=== PATIENT | female | born 1980 | race Caucasian/White ===

== ENCOUNTER 2017-01-11 17:21 | Observation (INO) | payer SELFPAY ==
[~2017-01-11] VITALS: Ht 157.5 cm; Wt 65.8 kg
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
--- NOTE | 2017-01-11 19:06 | ED CLINICAL REPORT ---
Clinical Report - Physicians/Mid Levels [facility] [address] [place] [address] 01/11/2017 17:23 Patient: AI BUTCHER Time Seen: 18:58 Mar 2016. Arrived- By private vehicle. Historian- patient. HISTORY OF PRESENT ILLNESS Chief Complaint: weak/ epigastric pain off on. 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 The patient has had loss of appetite, fatigue, a sleep problem and weakness. (call from her pcp to come to er due to critical low labs, recent increase in depression, fatigue, tiredness, situational stress. Denies excessive etoh/ nsaid. Denies melana. Denies hematemesis, hemoptysis. Does have heavy menses.). REVIEW OF SYSTEMS No fever, sore throat, cough, nausea or skin rash. No back pain. All systems otherwise negative, except as recorded above. SOCIAL HISTORY Never smoker. No alcohol use or drug use. ADDITIONAL NOTES The nursing notes have been reviewed. PHYSICAL EXAM Vital Signs: 01/11/2017 17:35 BP: 116/44. HR: 73. RR: 16. O2 saturation: 100%. Temp: 99.2 F. Pain level now: 10. Appearance: Alert. ENT: Ears normal. Neck: Normal inspection. No carotid bruit. CVS: Normal heart rate and rhythm. Heart sounds normal. Respiratory: No respiratory distress. Breath sounds normal. No decreased air movement. Abdomen: No visible injury. Soft. No abdominal tenderness. Neuro: Oriented X 3. LABS, X-RAYS, AND EKG EKG: EKG time: (1919). No acute process. No acute ischemia. Normal EKG. Rate: 65. Normal P waves. Normal VENKAT. Normal QRS complex. Normal ST and T waves and QT. The study has been interpreted contemporaneously. The EKG appears to be a good tracing. Chest X-ray: (IMPRESSION: 1. Normal chest. Electronically Final signed by:Ana tAwood MD 01/11/2017 7:42:42 PM). Laboratory Tests: Urine: (HUI: 01/11/2017 18:00) ( MsgRcvd 01/11/2017 18:50) Final results Test Result Flag Units (Reference) URINE NEGATIVE CBC w Diff: (HUI: 01/11/2017 18:05) ( [facility]11[facility] 18:53) Final results Test Result Flag Units (Reference) WHITE BLOOD COUNT 7.4 K/uL (4.5-11.5) RED BLOOD COUNT 3.76 L M/uL (4.00-5.20) HEMOGLOBIN 5.1 *L gm/dL (12.0-16.0) CRITICAL RESULTS CALLEDCalled to LISANDRA LOWERY 01/11/17 183Wer 2 patient identifiers used? YESWas the result read back? YES HEMATOCRIT 18.2 *L % (36.0-46.0) CRITICAL RESULTS [facility]EDCalled to [facility] 01/11/17 1833Wer 2 patient identifiers used? YESWas the result read back? YES MEAN CELL VOLUME 48 L fL (80-100) MEAN CORPUSCULAR HGB 14 L pg (26-34) MEAN CORPUSCULAR HGB CONC 28 L g/dL (31-37) RED CELL DISTRIBUTION WIDTH 22.6 H % (11.6-14.8) PLATELET COUNT 414 H K/uL (150-400) NEUTROPHIL % 58.3 % (50-75) LYMPH % 30.4 % (25-40) MONO % 8.4 % (3-14) EOSINOPHIL % 2.6 % (0-4) BASOPHIL % 0.3 % (0-2) RBC MORPHOLOGY 4+ POLYCHROMASIA~~4+ MICROCYTOSIS~~4+ HYPOCHROMIA~~2+ OVALOCYTES~~1+ TARGET CELLS PT with INR: (HUI: 01/11/2017 18:05) ( [facility] 01/11/2017 18:35) Final results Test Result Flag Units (Reference) INR 1.1 (0.8-1.2) Low Intensity Therapy: INR 1.5-2.0 PT range 18.5-23.1Mod.Intensity Therapy: INR 2.0-3.0 PT range 23.1-31.5High Intensity Therapy: INR 2.5-3.5 PT range 27.4-35.5High Intensity Therapy 2: INR 3.0-4.0 PT range 31.5-39.3 APTT 32 SECONDS (24-34) Urine Drug Screen: (HUI: 01/11/2017 18:00) ( MsgRcvd 01/11/2017 18:24) Final results Test Result Flag Units (Reference) AMPHETAMINE/METHAMPHETAMINE NEGATIVE (NEGATIVE) BARBITURATE NEGATIVE (NEGATIVE) BENZODIAZEPINE NEGATIVE (NEGATIVE) CANNABINOID NEGATIVE (NEGATIVE) COCAINE NEGATIVE (NEGATIVE) ECSTASY NEGATIVE (NEGATIVE) METHADONE NEGATIVE (NEGATIVE) OPIATE NEGATIVE (NEGATIVE) The urine drug screen is a qualitative screening test fordrug overdose and abuse. All screen results should beconsidered as presumptive.Drugs screened for are as follows:BenzodiazepinesCocaineAmphetamines/MetamphetaminesTHC (Tetrahydrocannabinol)OpiatesBarbituratesEcstasyMethadonePositive results are unconfirmed. For confirmation, notifythe lab for the specimen to be sent to the reference lab.All confirmations must be performed by a differentmethodology.The ingestion of natural herbal and plant productscontaining Ephedra/Ephedra metabolites can produce in urineone or more substances capable of cross reacting withamphetamine/methamphetamine immunoassays. These testsprovide a preliminary result only. A more specificalternative chemical method must be used to obtain aconfirmed analytical result. CMP: (HUI: 01/11/2017 18:05) ( MsgRcvd 01/11/2017 18:34) Final results Test Result Flag Units (Reference) GLUCOSE 87 mg/dL (70-110) BUN 14 mg/dL (7-18) CREATININE 0.8 mg/dL (0.6-1.3) Estimated GFR >60 mL/min Estimated GFR- >60 mL/min Note: Persistent reduction over 3 months in eGFR<60 mL/min/1.73 m2 defines CKD. Patients with eGFR values>=60 mL/min/1.73 m2 may also have CKD if evidence ofpersistent proteinuria. Additional information may be foundat www.kidney.org. SODIUM 141 mmol/L (136-145) POTASSIUM 3.4 L mmol/L (3.5-5.1) CHLORIDE 104 mmol/L (98-107) CARBON DIOXIDE 26 mmol/L (21-32) CALCIUM 8.5 mg/dL (8.5-10.1) TOTAL PROTEIN 8.2 g/dL (6.4-8.2) ALBUMIN 4.0 g/dL (3.3-5.0) BILIRUBIN, TOTAL 0.6 mg/dL (0.0-1.0) ALKALINE PHOSPHATASE 79 U/L (46-116) AST (SGOT) 15 U/L (15-37) ALT (SGPT) 16 U/L (12-78) . PROGRESS AND PROCEDURES Course of Care: H 4.7/ HCT 17.8 Discussed case with surgeon, dr. Frank, who reports no essential need for emergent scope. Hemoccult neg, exam chaperoned with VINCENT. Pt case discussed with Dr. Ruelas, who reports DR. Limon will call at change of shift. Dr. Limon called 19:20 agreed on treatment plan, will admit, transfuse 2 units rbc packed. Pt developed chest pain at 19:20, ordered cxr, ekg, trop. 01/11/2017 18:47 BP: 115/66. HR: 89. RR: 15. O2 saturation: 100%. Temp: 98.2 F. Pain level now: 0/10. Patient is stable. Discussed case with health care provider (Braxton). Patient/family counseled. Disposition: Admitted. CLINICAL IMPRESSION Anemia. (Electronically signed by Aliza Hernandez P.A.-C 01/11/2017 20:04)
--- NOTE | 2017-01-11 19:06 | ED CLINICAL REPORT ---
Clinical Report - Physicians/Mid Levels [facility] [address] [place] [address] 01/11/2017 17:23 Patient: AI BUTCHER Time Seen: 18:58 Mar 2016. Arrived- By private vehicle. Historian- patient. HISTORY OF PRESENT ILLNESS Chief Complaint: weak/ epigastric pain off on. 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 The patient has had loss of appetite, fatigue, a sleep problem and weakness. (call from her pcp to come to er due to critical low labs, recent increase in depression, fatigue, tiredness, situational stress. Denies excessive etoh/ nsaid. Denies melana. Denies hematemesis, hemoptysis. Does have heavy menses.). REVIEW OF SYSTEMS No fever, sore throat, cough, nausea or skin rash. No back pain. All systems otherwise negative, except as recorded above. SOCIAL HISTORY Never smoker. No alcohol use or drug use. ADDITIONAL NOTES The nursing notes have been reviewed. PHYSICAL EXAM Vital Signs: 01/11/2017 17:35 BP: 116/44. HR: 73. RR: 16. O2 saturation: 100%. Temp: 99.2 F. Pain level now: 10. Appearance: Alert. ENT: Ears normal. Neck: Normal inspection. No carotid bruit. CVS: Normal heart rate and rhythm. Heart sounds normal. Respiratory: No respiratory distress. Breath sounds normal. No decreased air movement. Abdomen: No visible injury. Soft. No abdominal tenderness. Neuro: Oriented X 3. LABS, X-RAYS, AND EKG EKG: EKG time: (1919). No acute process. No acute ischemia. Normal EKG. Rate: 65. Normal P waves. Normal VENKAT. Normal QRS complex. Normal ST and T waves and QT. The study has been interpreted contemporaneously. The EKG appears to be a good tracing. Chest X-ray: (IMPRESSION: 1. Normal chest. Electronically Final signed by:Ana Atwood MD 01/11/2017 7:42:42 PM). Laboratory Tests: Urine: (HUI: 01/11/2017 18:00) ( MsgRcvd 01/11/2017 18:50) Final results Test Result Flag Units (Reference) URINE NEGATIVE CBC w Diff: (HUI: 01/11/2017 18:05) ( [facility]11[facility]2017 18:53) Final results Test Result Flag Units (Reference) WHITE BLOOD COUNT 7.4 K/uL (4.5-11.5) RED BLOOD COUNT 3.76 L M/uL (4.00-5.20) HEMOGLOBIN 5.1 *L gm/dL (12.0-16.0) CRITICAL RESULTS CALLEDCalled to LISANDRA LOWERY 01/11/17 183Wer 2 patient identifiers used? YESWas the result read back? YES HEMATOCRIT 18.2 *L % (36.0-46.0) CRITICAL RESULTS [facility]EDCalled to [facility] 01/11/17 1833Wer 2 patient identifiers used? YESWas the result read back? YES MEAN CELL VOLUME 48 L fL (80-100) MEAN CORPUSCULAR HGB 14 L pg (26-34) MEAN CORPUSCULAR HGB CONC 28 L g/dL (31-37) RED CELL DISTRIBUTION WIDTH 22.6 H % (11.6-14.8) PLATELET COUNT 414 H K/uL (150-400) NEUTROPHIL % 58.3 % (50-75) LYMPH % 30.4 % (25-40) MONO % 8.4 % (3-14) EOSINOPHIL % 2.6 % (0-4) BASOPHIL % 0.3 % (0-2) RBC MORPHOLOGY 4+ POLYCHROMASIA~~4+ MICROCYTOSIS~~4+ HYPOCHROMIA~~2+ OVALOCYTES~~1+ TARGET CELLS PT with INR: (HUI: 01/11/2017 18:05) ( [facility] 01/11/2017 18:35) Final results Test Result Flag Units (Reference) INR 1.1 (0.8-1.2) Low Intensity Therapy: INR 1.5-2.0 PT range 18.5-23.1Mod.Intensity Therapy: INR 2.0-3.0 PT range 23.1-31.5High Intensity Therapy: INR 2.5-3.5 PT range 27.4-35.5High Intensity Therapy 2: INR 3.0-4.0 PT range 31.5-39.3 APTT 32 SECONDS (24-34) Urine Drug Screen: (HUI: 01/11/2017 18:00) ( MsgRcvd 01/11/2017 18:24) Final results Test Result Flag Units (Reference) AMPHETAMINE/METHAMPHETAMINE NEGATIVE (NEGATIVE) BARBITURATE NEGATIVE (NEGATIVE) BENZODIAZEPINE NEGATIVE (NEGATIVE) CANNABINOID NEGATIVE (NEGATIVE) COCAINE NEGATIVE (NEGATIVE) ECSTASY NEGATIVE (NEGATIVE) METHADONE NEGATIVE (NEGATIVE) OPIATE NEGATIVE (NEGATIVE) The urine drug screen is a qualitative screening test fordrug overdose and abuse. All screen results should beconsidered as presumptive.Drugs screened for are as follows:BenzodiazepinesCocaineAmphetamines/MetamphetaminesTHC (Tetrahydrocannabinol)OpiatesBarbituratesEcstasyMethadonePositive results are unconfirmed. For confirmation, notifythe lab for the specimen to be sent to the reference lab.All confirmations must be performed by a differentmethodology.The ingestion of natural herbal and plant productscontaining Ephedra/Ephedra metabolites can produce in urineone or more substances capable of cross reacting withamphetamine/methamphetamine immunoassays. These testsprovide a preliminary result only. A more specificalternative chemical method must be used to obtain aconfirmed analytical result. CMP: (HUI: 01/11/2017 18:05) ( MsgRcvd 01/11/2017 18:34) Final results Test Result Flag Units (Reference) GLUCOSE 87 mg/dL (70-110) BUN 14 mg/dL (7-18) CREATININE 0.8 mg/dL (0.6-1.3) Estimated GFR >60 mL/min Estimated GFR- >60 mL/min Note: Persistent reduction over 3 months in eGFR<60 mL/min/1.73 m2 defines CKD. Patients with eGFR values>=60 mL/min/1.73 m2 may also have CKD if evidence ofpersistent proteinuria. Additional information may be foundat www.kidney.org. SODIUM 141 mmol/L (136-145) POTASSIUM 3.4 L mmol/L (3.5-5.1) CHLORIDE 104 mmol/L (98-107) CARBON DIOXIDE 26 mmol/L (21-32) CALCIUM 8.5 mg/dL (8.5-10.1) TOTAL PROTEIN 8.2 g/dL (6.4-8.2) ALBUMIN 4.0 g/dL (3.3-5.0) BILIRUBIN, TOTAL 0.6 mg/dL (0.0-1.0) ALKALINE PHOSPHATASE 79 U/L (46-116) AST (SGOT) 15 U/L (15-37) ALT (SGPT) 16 U/L (12-78) . PROGRESS AND PROCEDURES Course of Care: H 4.7/ HCT 17.8 Discussed case with surgeon, dr. Frank, who reports no essential need for emergent scope. Hemoccult neg, exam chaperoned with VINCENT. Pt case discussed with Dr. Ruelas, who reports DR. Limon will call at change of shift. Dr. Limon called 19:20 agreed on treatment plan, will admit, transfuse 2 units rbc packed. Pt developed chest pain at 19:20, ordered cxr, ekg, trop. 01/11/2017 18:47 BP: 115/66. HR: 89. RR: 15. O2 saturation: 100%. Temp: 98.2 F. Pain level now: 0/10. Patient is stable. Discussed case with health care provider (Braxton). Patient/family counseled. Disposition: Admitted. CLINICAL IMPRESSION Anemia. (Electronically signed by Aliza Hernandez P.A.-C 01/11/2017 20:04)
--- NOTE | 2017-01-11 19:06 | ED ORDER SUMMARY ---
..... Patient: AI BUTCHER OrderSheet [facility] VisitID: [id number] [address] [place] [address] 36y, F Registration Date/Time: 01/11/2017 ORDER SHEET Weight: 62.5 kg (stated) Allergies: Dayquil GENERAL ORDERS: CBC w Diff Urgent (17:46 01/11/2017 EKoroleva P.A.-C) (Ack 17:56 RKaruga) (18:11 EHassan R.N.) PT with INR Urgent (17:46 01/11/2017 EKoroleva P.A.-C) (Ack 17:56 RKaruga) (18:11 EHassan R.N.) PTT Urgent (17:46 01/11/2017 EKoroleva P.A.-C) (Ack 17:56 RKaruga) (18:11 EHassan R.N.) BMP Urgent (17:46 01/11/2017 EKoroleva P.A.-C) (Cancelled: Other17:46 EKoroleva P.A.-C) CMP Urgent (17:46 01/11/2017 EKoroleva P.A.-C) (Ack 17:56 RKaruga) (18:11 EHassan R.N.) Urine Drug Screen Urgent (17:46 01/11/2017 EKoroleva P.A.-C) (Ack 17:56 RKaruga) (18:11 EHassan R.N.) Type & Screen Urgent (17:53 01/11/2017 EKoroleva P.A.-C) (Ack 17:56 RKaruga) (18:11 EHassan R.N.) Transfuse PRBCs (2 units) (18:33 01/11/2017 EKoroleva P.A.-C) (Ack 18:51 RKaruga) (20:17 EHassan R.N.) - (2 units RBC packed) (18:36 01/11/2017 EKoroleva P.A.-C) (Ack 18:51 RKaruga) (20:17 EHassan R.N.) Urine Urgent (18:38 01/11/2017 EKoroleva P.A.-C) (Ack 18:40 RKaruga) (18:47 EHassan R.N.) Chest 2V Urgent (19:11 01/11/2017 EKoroleva P.A.-C) (Ack 19:14 AMcQuoid ER Tech1) (19:36 MCampbell) [employer] (Continuous) (19:11 01/11/2017 EKoroleva P.A.-C) (19:15 EHassan R.N.) EKG - ER Stat (19:11 01/11/2017 EKoroleva P.A.-C) (Ack 19:14 AMcQuoid ER Tech1) (19:15 EHassan R.N.) - (retic count) (19:32 01/11/2017 EKoroleva P.A.-C) (Ack 19:53 AMcQuoid ER Tech1) (20:03 AMcQuoid ER Tech1) -- (b12) (19:32 01/11/2017 EKoroleva P.A.-C) (Ack 19:53 AMcQuoid ER Tech1) (20:03 AMcQuoid ER Tech1) --- (iron deficiency labs including: iron binding capacity (transferrin), transferrin saturation, and ferritin) (19:33 01/11/2017 EKoroleva P.A.-C) (Ack 19:53 AMcQuoid ER Tech1) (20:03 AMcQuoid ER Tech1) Troponin-I Urgent (19:34 01/11/2017 EKoroleva P.A.-C) (Ack 19:45 AMcQuoid ER Tech1) (20:03 AMcQuoid ER Tech1) - (folate) (19:55 01/11/2017 EKoroleva P.A.-C) (20:03 AMcQuoid ER Tech1) MEDICATION ORDERS: IV FLUIDS: IV Saline Lock (17:46 01/11/2017 EKoroleva P.A.-C) (18:12 EHassan R.N.) ORDER SHEET NOTES: [Electronically signed by Aliza Hernandez PDuaneADuane-C (20:04 01/11/2017)] [Electronically signed by Kaylee Coreas R.N. (20:54 01/11/2017)] [Electronically locked/signed by Kaylee Coreas R.N. (20:54 01/11/2017)]
--- NOTE | 2017-01-11 19:06 | ED ORDER SUMMARY ---
..... Patient: AI BUTCHER OrderSheet Formerly [facility] VisitID: [id number] [address] [place] [address] 36y, F Registration Date/Time: 01/11/2017 ORDER SHEET Weight: 62.5 kg (stated) Allergies: Dayquil GENERAL ORDERS: CBC w Diff Urgent (17:46 01/11/2017 EKoroleva P.A.-C) (Ack 17:56 RKaruga) (18:11 EHassan R.N.) PT with INR Urgent (17:46 01/11/2017 EKoroleva P.A.-C) (Ack 17:56 RKaruga) (18:11 EHassan R.N.) PTT Urgent (17:46 01/11/2017 EKoroleva P.A.-C) (Ack 17:56 RKaruga) (18:11 EHassan R.N.) BMP Urgent (17:46 01/11/2017 EKoroleva P.A.-C) (Cancelled: Other17:46 EKoroleva P.A.-C) CMP Urgent (17:46 01/11/2017 EKoroleva P.A.-C) (Ack 17:56 RKaruga) (18:11 EHassan R.N.) Urine Drug Screen Urgent (17:46 01/11/2017 EKoroleva P.A.-C) (Ack 17:56 RKaruga) (18:11 EHassan R.N.) Type & Screen Urgent (17:53 01/11/2017 EKoroleva P.A.-C) (Ack 17:56 RKaruga) (18:11 EHassan R.N.) Transfuse PRBCs (2 units) (18:33 01/11/2017 EKoroleva P.A.-C) (Ack 18:51 RKaruga) (20:17 EHassan R.N.) - (2 units RBC packed) (18:36 01/11/2017 EKoroleva P.A.-C) (Ack 18:51 RKaruga) (20:17 EHassan R.N.) Urine Urgent (18:38 01/11/2017 EKoroleva P.A.-C) (Ack 18:40 RKaruga) (18:47 EHassan R.N.) Chest 2V Urgent (19:11 01/11/2017 EKoroleva P.A.-C) (Ack 19:14 AMcQuoid ER Tech1) (19:36 MCampbell) Coal Chute Worker (Continuous) (19:11 01/11/2017 EKoroleva P.A.-C) (19:15 EHassan R.N.) EKG - ER Stat (19:11 01/11/2017 EKoroleva P.A.-C) (Ack 19:14 AMcQuoid ER Tech1) (19:15 EHassan R.N.) - (retic count) (19:32 01/11/2017 EKoroleva P.A.-C) (Ack 19:53 AMcQuoid ER Tech1) (20:03 AMcQuoid ER Tech1) -- (b12) (19:32 01/11/2017 EKoroleva P.A.-C) (Ack 19:53 AMcQuoid ER Tech1) (20:03 AMcQuoid ER Tech1) --- (iron deficiency labs including: iron binding capacity (transferrin), transferrin saturation, and ferritin) (19:33 01/11/2017 EKoroleva P.A.-C) (Ack 19:53 AMcQuoid ER Tech1) (20:03 AMcQuoid ER Tech1) Troponin-I Urgent (19:34 01/11/2017 EKoroleva P.A.-C) (Ack 19:45 AMcQuoid ER Tech1) (20:03 AMcQuoid ER Tech1) - (folate) (19:55 01/11/2017 EKoroleva P.A.-C) (20:03 AMcQuoid ER Tech1) MEDICATION ORDERS: IV FLUIDS: IV Saline Lock (17:46 01/11/2017 EKoroleva P.A.-C) (18:12 EHassan R.N.) ORDER SHEET NOTES: [Electronically signed by Aliza Hernandez PDuaneADuane-C (20:04 01/11/2017)] [Electronically signed by Kaylee Coreas R.N. (20:54 01/11/2017)] [Electronically locked/signed by Kaylee Coreas R.N. (20:54 01/11/2017)]
--- NOTE | 2017-01-11 19:46 | DIAGNOSTIC IMAGING REPORT ---
PROCEDURE: XR CHEST 2 VIEW INDICATION: CHEST PAIN TECHNIQUE: Two views. COMPARISON: None. FINDINGS: The cardiomediastinal contour and central vasculature are within normal limits. The lungs are clear without focal consolidation, pleural effusion, or pneumothorax. The visualized osseous structures are intact. IMPRESSION: 1. Normal chest.
[2017-01-11 20:44] VITALS: BP 113/60
--- NOTE | 2017-01-11 20:54 | ED MAR SUMMARY ---
..... Medication Administration Record [facility] [address] [place], [place] [id number] Patient: BENSON VALENTINA AI Visit ID: [id number] 36y, F Weight: 62.5 kg Height/Length: 62 in BMI: 25.2 ALLERGIES: Dayquil
--- NOTE | 2017-01-11 20:54 | ED DISCHARGE INSTRUCTIONS ---
Patient: KNOWLES AI MONTGOMERY General Instructions [facility] VisitID: [id number] [address] [place] [address] 36y, F Registration Date/Time: 01/11/2017 Anemia. (Electronically signed by Aliza Hernandez P.A.-C 01/11/2017 20:04)
--- NOTE | 2017-01-11 20:54 | ED MED RECONCILIATION SUMMARY ---
Patient: BENSON AI MONTGOMERY Medication Reconciliation Report [facility] VisitID: [id number] [address] [place] [address] 36y, F Registration Date/Time: 01/11/2017 Weight: 62.5 kg Height/Length: 62 in. BMI: 25.2 ALLERGIES: Dayquil The patient's Home Medications are listed below: THE FOLLOWING MEDICATIONS NEED TO BE RECONCILED: HydrOXYzine HCl Oral 10 mg, at bedtime Omeprazole Oral 40 mg, daily Sertraline HCl Oral 50 mg, at bedtime The source(s) of the original Home Medication information: Not obtained. The following Medications were given to the patient in the Emergency Department: None. The following Medications were prescribed to the patient: None.
--- NOTE | 2017-01-11 20:54 | ED MAR SUMMARY ---
..... Medication Administration Record [facility] [address] [place], [place] [id number] Patient: BENSON VALENTINA AI Visit ID: [id number] 36y, F Weight: 62.5 kg Height/Length: 62 in BMI: 25.2 ALLERGIES: Dayquil
--- NOTE | 2017-01-11 20:54 | ED MED RECONCILIATION SUMMARY ---
Patient: BENSON AI MONTGOMERY Medication Reconciliation Report [facility] VisitID: [id number] [address] [place] [address] 36y, F Registration Date/Time: 01/11/2017 Weight: 62.5 kg Height/Length: 62 in. BMI: 25.2 ALLERGIES: Dayquil The patient's Home Medications are listed below: THE FOLLOWING MEDICATIONS NEED TO BE RECONCILED: HydrOXYzine HCl Oral 10 mg, at bedtime Omeprazole Oral 40 mg, daily Sertraline HCl Oral 50 mg, at bedtime The source(s) of the original Home Medication information: Not obtained. The following Medications were given to the patient in the Emergency Department: None. The following Medications were prescribed to the patient: None.
--- NOTE | 2017-01-11 20:54 | ED DISCHARGE INSTRUCTIONS ---
Patient: KNOWLES AI MONTGOMERY General Instructions [facility] VisitID: [id number] [address] [place] [address] 36y, F Registration Date/Time: 01/11/2017 Anemia. (Electronically signed by Aliza Hernandez P.A.-C 01/11/2017 20:04)
[2017-01-11] MEDS ORDERED: HYDROXYZINE HCL25 MG PO (21:00)
--- NOTE | 2017-01-11 21:00 | Progress Note ---
Subjective General Admission History and Physical Examination Patient Name: Tasha Che Admission Date: January 11, 2017 Primary Care Provider: Genny SMITH Attending Physician: Kash Limon M.D. Admitting Physician: Kash Limon M.D. Code Status: FULL CODE Room: 212 SUBJECTIVE Historian: Patient Reliability: Good Chief Complaint: Anemia History of Present Illness: The patient is a 36-year-old female with a significant past medical history of anxiety, depression who presented to [facility] emergency department as a referral by her PCP secondary to findings of anemia on outpatient laboratory testing. No other significant complaints at this time. [facility] ER evaluation was consistent with severe anemia with H&H of 5.1/18.2, MCV 48. Secondary to the above, the patient was admitted by Kash Limon M.D. for further evaluation and treatment. The patient was recently seen by her PCP at [facility] in [place]. During that visit the patient complained of depression, anxiety, low energy, and dyspepsia. The patient also complained of experienced increasing shortness of breath with exertion. She was treated with Zoloft 50 mg by mouth daily and Prilosec 40 mg by mouth daily. Laboratory evaluation showed severe anemia. Secondary to the above, her PCP referred her to [facility] emergency department for further evaluation and treatment with consideration of transfusion. PAST MEDICAL HISTORY Illnesses: 1. Depression/anxiety 2. Dyspepsia Allergies: 1. DayQuil Medications: 1. Ibuprofen 200 mg by mouth when necessary headache 2. Hydroxyzine 10 mg by mouth daily at bedtime when necessary anxiety 3. Prilosec 40 mg by mouth daily 4. Zoloft 50 mg by mouth daily at bedtime Surgery: 1. 4-2001, 2003, 2007, 2009 Injuries: 1. No significant Hospitalizations: 1. For above surgery FAMILY HISTORY Parents: 1. Father, unknown, 2. Mother, living, 55, breast cancer Siblings: 1. None Children: 1. 4 children, good health Other significant family history: None SOCIAL HISTORY 1. Marital Status: Single 2. Yazidi: Spiritism-Cheondoism 3. Education: High school 4. Employment History: [employer] 5. Occupational health exposures: None HABITS 1. Tobacco: None 2. Drugs: None 3. Alcohol: One ounces per month 4. Caffeine: 2 cups per day-coffee HEALTH SUPERVISION Item/Test 1. Vision screen: 2011 2. Cholesterol Profile: 2016 3. PSA: NA 4. AYDIN: NA 5. FOBT: NA 6. Blood Glucose: 2016 7. Colonoscopy: NA 8. History and physical exam: 2016 9. Audiogram: NA 10. Mammogram: NA 11. Pap/pelvic exam: 2014 IMMUNIZATIONS: 1. Pneumococcal: NA 2. Influenza: 2014 3. Tetanus: 2014 ADVANCED DIRECTIVES: 1. Living well: No 2. POLST: No 3. CODE STATUS: FULL CODE 4. Durable Power [employer] Health care: No 5. Donor card: No REVIEW OF SYSTEMS Remarkable for those things stated in the history of present illness and past medical history. Seventeen point review of system completed with the following notable findings: Eyes: Decreased visual acuity requiring corrective lenses Gastrointestinal: Loss of appetite, dyspepsia Psychological: Depression, difficulty sleeping, anxiety, loss of interest in enjoyable events Genital: Irregular heavy periods Physical Exam Vital Signs / I&Os Vital Signs Date Time Temp Pulse Resp B/P Pulse O2 O2 Flow FiO2 Ox Delivery Rate 01/12 2044 97.5 65 20 113/60 100 Room Air General Appearance Alert, Oriented X3, Cooperative, No acute distress HEENT Atraumatic, PERRLA, EOMI, Moist mucous membranes, Coyle mucous membranes Lungs Clear to auscultation, Normal air movement Neck Supple, No JVD, No masses Cardiovascular Regular rate and rhythm, Normal S1 and S2, grade 1-2/6 systolic murmur. No rubs or gallops. Abdomen Normal bowel sounds, Soft, No tenderness, No guarding Extremities No cyanosis, No clubbing, No edema Neurological Cranial nerves intact, Strength 5/5 x4 ext's, No lateralizing signs Psych/Mental Status Mental status normal, Mood normal LAB Results Laboratory Tests 01/11 1816 Chemistry Iron Pending TIBC Pending Iron Saturation Pending Transferrin Pending Ferritin Pending Troponin (0.00 - 1.5 ng/mL) <0.05 Vitamin B12 Pending Folate Pending Hematology Reticulocyte % (Auto) (0.5 - 1.5 %) 2.9 Reticulocyte # (0.02 - 0.08 M/uL) 0.1068 01/11 01/11 1805 1800 Chemistry Plasma Sodium (136 - 145 mmol/L) 141 Plasma Potassium (3.5 - 5.1 mmol/L) 3.4 Plasma Chloride (98 - 107 mmol/L) 104 CO2 (Enzymatic) (21 - 32 mmol/L) 26 BUN (7 - 18 mg/dL) 14 Creatinine (0.6 - 1.3 mg/dL) 0.8 Est GFR ( Amer) (mL/min) >60 Est GFR (Non-Af Amer) (mL/min) >60 Glucose (70 - 110 mg/dL) 87 Plasma Calcium (8.5 - 10.1 mg/dL) 8.5 Total Bilirubin (0.0 - 1.0 mg/dL) 0.6 AST (15 - 37 U/L) 15 ALT (12 - 78 U/L) 16 Alkaline Phosphatase (46 - 116 U/L) 79 Total Protein (6.4 - 8.2 g/dL) 8.2 Albumin (3.3 - 5.0 g/dL) 4.0 Coagulation INR (0.8 - 1.2) 1.1 APTT (24 - 34 SECONDS) 32 Hematology WBC (4.5 - 11.5 K/uL) 7.4 RBC (4.00 - 5.20 M/uL) 3.76 Hgb (12.0 - 16.0 gm/dL) 5.1 Hct (36.0 - 46.0 %) 18.2 MCV (80 - 100 fL) 48 MCH (26 - 34 pg) 14 RDW (11.6 - 14.8 %) 22.6 Neut % (Auto) (50 - 75 %) 58.3 Lymph % (Auto) (25 - 40 %) 30.4 Pine % (Auto) (3 - 14 %) 8.4 Eos % (Auto) (0 - 4 %) 2.6 Baso % (Auto) (0 - 2 %) 0.3 Plt Count, EDTA (150 - 400 K/uL) 414 RBC Morphology (3944 A) 1+ TARGET CELLS PUBS MCHC (31 - 37 g/dL) 28 Toxicology Urine Opiates Screen (NEGATIVE) NEGATIVE Urine Methadone Screen (NEGATIVE) NEGATIVE Ur Barbiturates Screen (NEGATIVE) NEGATIVE U Amphetamin/Meth Scrn (NEGATIVE) NEGATIVE MDMA (Ecstasy) Screen (NEGATIVE) NEGATIVE U Benzodiazepines Scrn (NEGATIVE) NEGATIVE Urine Cocaine Screen (NEGATIVE) NEGATIVE U Cannabinoids Screen (NEGATIVE) NEGATIVE Urines Urine Test NEGATIVE Imaging None Assessment and Plan Problem List 1. Anemia Status Chronic Onset Date Unknown Plan -Patient presents with severe microcytic anemia -Patient denies history of GI bleeding. Gives history of menorrhagia, dyspepsia -H&H 5.1/18.2. MCV 48 -Iron studies consistent with iron deficiency anemia -B12, folate levels within normal limits -Type and cross for 2 units of packed RBCs-transfuse tonight -Probable discharge in a.m. with outpatient follow-up with PCP. -Stool Hemoccult 3 2. Depression Status Acute Onset Date Unknown Plan -Patient with history of depression -Recently started on Zoloft -Continue Zoloft 50 mg by mouth daily -Monitor 3. Anxiety Status Acute Onset Date Unknown Plan -Patient with history of anxiety -Ativan 0.5-1 mg by mouth every 6 hours when necessary anxiety -Monitor 4. Hypokalemia Status Acute Onset Date Unknown Plan -Patient presents with findings of hypokalemia-mild -Potassium 3.4 -Potassium 20 mEq by mouth every morning, IV fluids with KCl -Recheck in a.m. Current status: Fair, stable Anticipated discharge date: Anticipated discharge in a.m. Anticipated discharge placement: Home Patient care time: Time spent in chart review, patient interview, physical exam, CPOE, and care documentation: 60 minutes Visit to patient today: 1 Complexity of care: Moderate E&M Codes Admission: Obsv-Comp/High/[id number]
--- NOTE | 2017-01-11 21:00 | Progress Note ---
Subjective General Admission History and Physical Examination Patient Name: Tasha Che Admission Date: January 11, 2017 Primary Care Provider: Genny SMITH Attending Physician: Kash Limon M.D. Admitting Physician: Kash Limon M.D. Code Status: FULL CODE Room: 212 SUBJECTIVE Historian: Patient Reliability: Good Chief Complaint: Anemia History of Present Illness: The patient is a 36-year-old female with a significant past medical history of anxiety, depression who presented to [facility] emergency department as a referral by her PCP secondary to findings of anemia on outpatient laboratory testing. No other significant complaints at this time. [facility] ER evaluation was consistent with severe anemia with H&H of 5.1/18.2, MCV 48. Secondary to the above, the patient was admitted by Kash Limon M.D. for further evaluation and treatment. The patient was recently seen by her PCP at [facility] in [place]. During that visit the patient complained of depression, anxiety, low energy, and dyspepsia. The patient also complained of experienced increasing shortness of breath with exertion. She was treated with Zoloft 50 mg by mouth daily and Prilosec 40 mg by mouth daily. Laboratory evaluation showed severe anemia. Secondary to the above, her PCP referred her to [facility] emergency department for further evaluation and treatment with consideration of transfusion. PAST MEDICAL HISTORY Illnesses: 1. Depression/anxiety 2. Dyspepsia Allergies: 1. DayQuil Medications: 1. Ibuprofen 200 mg by mouth when necessary headache 2. Hydroxyzine 10 mg by mouth daily at bedtime when necessary anxiety 3. Prilosec 40 mg by mouth daily 4. Zoloft 50 mg by mouth daily at bedtime Surgery: 1. 4-2001, 2003, 2007, 2009 Injuries: 1. No significant Hospitalizations: 1. For above surgery FAMILY HISTORY Parents: 1. Father, unknown, 2. Mother, living, 55, breast cancer Siblings: 1. None Children: 1. 4 children, good health Other significant family history: None SOCIAL HISTORY 1. Marital Status: Single 2. Pentecostalism: Scientology-Uatsdin 3. Education: High school 4. Employment History: [employer] 5. Occupational health exposures: None HABITS 1. Tobacco: None 2. Drugs: None 3. Alcohol: One ounces per month 4. Caffeine: 2 cups per day-coffee HEALTH SUPERVISION Item/Test 1. Vision screen: 2011 2. Cholesterol Profile: 2016 3. PSA: NA 4. AYDIN: NA 5. FOBT: NA 6. Blood Glucose: 2016 7. Colonoscopy: NA 8. History and physical exam: 2016 9. Audiogram: NA 10. Mammogram: NA 11. Pap/pelvic exam: 2014 IMMUNIZATIONS: 1. Pneumococcal: NA 2. Influenza: 2014 3. Tetanus: 2014 ADVANCED DIRECTIVES: 1. Living well: No 2. POLST: No 3. CODE STATUS: FULL CODE 4. 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 Donor card: No REVIEW OF SYSTEMS Remarkable for those things stated in the history of present illness and past medical history. Seventeen point review of system completed with the following notable findings: Eyes: Decreased visual acuity requiring corrective lenses Gastrointestinal: Loss of appetite, dyspepsia Psychological: Depression, difficulty sleeping, anxiety, loss of interest in enjoyable events Genital: Irregular heavy periods Physical Exam Vital Signs / I&Os Vital Signs Date Time Temp Pulse Resp B/P Pulse O2 O2 Flow FiO2 Ox Delivery Rate 01/12 2044 97.5 65 20 113/60 100 Room Air General Appearance Alert, Oriented X3, Cooperative, No acute distress HEENT Atraumatic, PERRLA, EOMI, Moist mucous membranes, Coyle mucous membranes Lungs Clear to auscultation, Normal air movement Neck Supple, No JVD, No masses Cardiovascular Regular rate and rhythm, Normal S1 and S2, grade 1-2/6 systolic murmur. No rubs or gallops. Abdomen Normal bowel sounds, Soft, No tenderness, No guarding Extremities No cyanosis, No clubbing, No edema Neurological Cranial nerves intact, Strength 5/5 x4 ext's, No lateralizing signs Psych/Mental Status Mental status normal, Mood normal LAB Results Laboratory Tests 01/11 1816 Chemistry Iron Pending TIBC Pending Iron Saturation Pending Transferrin Pending Ferritin Pending Troponin (0.00 - 1.5 ng/mL) <0.05 Vitamin B12 Pending Folate Pending Hematology Reticulocyte % (Auto) (0.5 - 1.5 %) 2.9 Reticulocyte # (0.02 - 0.08 M/uL) 0.1068 01/11 01/11 1805 1800 Chemistry Plasma Sodium (136 - 145 mmol/L) 141 Plasma Potassium (3.5 - 5.1 mmol/L) 3.4 Plasma Chloride (98 - 107 mmol/L) 104 CO2 (Enzymatic) (21 - 32 mmol/L) 26 BUN (7 - 18 mg/dL) 14 Creatinine (0.6 - 1.3 mg/dL) 0.8 Est GFR ( Amer) (mL/min) >60 Est GFR (Non-Af Amer) (mL/min) >60 Glucose (70 - 110 mg/dL) 87 Plasma Calcium (8.5 - 10.1 mg/dL) 8.5 Total Bilirubin (0.0 - 1.0 mg/dL) 0.6 AST (15 - 37 U/L) 15 ALT (12 - 78 U/L) 16 Alkaline Phosphatase (46 - 116 U/L) 79 Total Protein (6.4 - 8.2 g/dL) 8.2 Albumin (3.3 - 5.0 g/dL) 4.0 Coagulation INR (0.8 - 1.2) 1.1 APTT (24 - 34 SECONDS) 32 Hematology WBC (4.5 - 11.5 K/uL) 7.4 RBC (4.00 - 5.20 M/uL) 3.76 Hgb (12.0 - 16.0 gm/dL) 5.1 Hct (36.0 - 46.0 %) 18.2 MCV (80 - 100 fL) 48 MCH (26 - 34 pg) 14 RDW (11.6 - 14.8 %) 22.6 Neut % (Auto) (50 - 75 %) 58.3 Lymph % (Auto) (25 - 40 %) 30.4 [place] % (Auto) (3 - 14 %) 8.4 Eos % (Auto) (0 - 4 %) 2.6 Baso % (Auto) (0 - 2 %) 0.3 Plt Count, EDTA (150 - 400 K/uL) 414 RBC Morphology (3944 A) 1+ TARGET CELLS PUBS MCHC (31 - 37 g/dL) 28 Toxicology Urine Opiates Screen (NEGATIVE) NEGATIVE Urine Methadone Screen (NEGATIVE) NEGATIVE Ur Barbiturates Screen (NEGATIVE) NEGATIVE U Amphetamin/Meth Scrn (NEGATIVE) NEGATIVE MDMA (Ecstasy) Screen (NEGATIVE) NEGATIVE U Benzodiazepines Scrn (NEGATIVE) NEGATIVE Urine Cocaine Screen (NEGATIVE) NEGATIVE U Cannabinoids Screen (NEGATIVE) NEGATIVE Urines Urine Test NEGATIVE Imaging None Assessment and Plan Problem List 1. Anemia Status Chronic Onset Date Unknown Plan -Patient presents with severe microcytic anemia -Patient denies history of GI bleeding. Gives history of menorrhagia, dyspepsia -H&H 5.1/18.2. MCV 48 -Iron studies consistent with iron deficiency anemia -B12, folate levels within normal limits -Type and cross for 2 units of packed RBCs-transfuse tonight -Probable discharge in a.m. with outpatient follow-up with PCP. -Stool Hemoccult 3 2. Depression Status Acute Onset Date Unknown Plan -Patient with history of depression -Recently started on Zoloft -Continue Zoloft 50 mg by mouth daily -Monitor 3. Anxiety Status Acute Onset Date Unknown Plan -Patient with history of anxiety -Ativan 0.5-1 mg by mouth every 6 hours when necessary anxiety -Monitor 4. Hypokalemia Status Acute Onset Date Unknown Plan -Patient presents with findings of hypokalemia-mild -Potassium 3.4 -Potassium 20 mEq by mouth every morning, IV fluids with KCl -Recheck in a.m. Current status: Fair, stable Anticipated discharge date: Anticipated discharge in a.m. Anticipated discharge placement: Home Patient care time: Time spent in chart review, patient interview, physical exam, CPOE, and care documentation: 60 minutes Visit to patient today: 1 Complexity of care: Moderate E&M Codes Admission: Obsv-Comp/High/[id number]
[2017-01-11] MEDS ORDERED: SERTRALINE HCL50 MG PO (21:01)
[2017-01-11] MEDS ORDERED: OMEPRAZOLE20 M1 PO (21:01)
[2017-01-11 21:39] VITALS: BP 112/60
[2017-01-11 21:54] VITALS: BP 96/75
[2017-01-11 22:05] VITALS: BP 107/50
[2017-01-11 22:20] VITALS: BP 109/60
[2017-01-11 23:04] VITALS: BP 107/56
[2017-01-12] VITALS (9 sets, daily range): BP systolic 87–114; BP diastolic 36–69
--- NOTE | 2017-01-12 12:16 | DIAGNOSTIC IMAGING REPORT ---
PROCEDURE: US COMPLETE PELVIC W/TRANSVAG INDICATION: menorrhagia - ? fibroid vs. other TECHNIQUE: Transabdominal and endovaginal sheldon scale and color Doppler sonographic images of the female pelvis were obtained. COMPARISON: None. FINDINGS: TRANSABDOMINAL SCANS: Retroverted uterus. TRANSVAGINAL SCANS: Uterus measures 8.1 x 3.2 x 4.4 cm. Normal myometrium. Normal endometrial measures 5.2 mm. Right ovary measures 3 x 2.2 x 1.8 cm and left ovary 3.7 x 1.9 x 3.3 cm. Small peripheral follicles bilaterally with normal vascular flow. There is trace free fluid. IMPRESSION: 1. Normal pelvic ultrasound
[2017-01-12] MEDS ORDERED: FERROUS SULFATE PO (12:37)
[2017-01-12] MEDS ORDERED: COLACE100 MG PO (12:38)
--- NOTE | 2017-01-12 12:44 | Provider's Discharge Care Plan ---
Problem, Goal, Plan Problem List 1. Anemia Goals: Improved health/wellness, Therapeutic intervention Instructions: Follow up as directed, Take meds as directed 2. Dysfunctional uterine bleeding Goals: Improved health/wellness, Therapeutic intervention Instructions: Follow up as directed, Take meds as directed
[2017-01-12] MEDS ORDERED: DEPO-PROVER150 MG/ML IM (12:45)
--- NOTE | 2017-01-13 00:45 | DISCHARGE SUMMARY ---
ADMIT DATE: 01/11/2017 DISCHARGE DATE: 01/12/2017 ADMITTING DIAGNOSES: 1. Severe anemia 2. Menorrhagia 3. Depression 4. Anxiety 5. Hypokalemia DISCHARGE DIAGNOSES: 1. Anemia, improving after 2 units of packed red blood cells 2. Iron-deficiency anemia 3. Menorrhagia secondary to dysfunctional uterine bleeding, starting Depo- Medrol 4. Depression and anxiety, stable 5. Hypokalemia, replaced BRIEF HISTORY: This is a 36-year-old female who presented to the emergency department upon referral from her PCP after finding to be severely anemic in the office. Apparently in the office, her hemoglobin and hematocrit was 5.1 and 18.2 with an MCV of 48. The patient does report that over the last 3 to 4 months, she has had heavy periods lasting approximately 2 weeks. She has had low energy and some very mild dyspepsia. She has had increasing shortness of breath with exertion. HOSPITAL COURSE: The patient received 2 units of packed red blood cells which brought her blood count up to 7.5 hemoglobin. The patient did have some intermittent anemia with this; however, did not have abnormal orthostatic blood pressures. After discussion with the patient about whether to transfuse 1 more unit of blood or not, the patient declined the transfusion. An ultrasound of her abdomen was done, which did not show any unusual pathology resulting in her menorrhagia. She is not currently on her menses. PHYSICAL EXAMINATION: VITAL SIGNS: At the time of discharge, vital signs are stable. GENERAL: This is a healthy-appearing female lying in bed in no apparent distress. HEENT: Head is atraumatic, normocephalic. LUNGS: Clear to auscultation bilaterally. ABDOMEN: Soft, nontender, nondistended without hepatosplenomegaly or masses. Bowel sounds are active. HEART: S1, S2, regular rate and rhythm. No S3, S4, murmurs, gallops, or rubs. There is no peripheral edema. DISCHARGE INSTRUCTIONS/MEDICATIONS: The patient was discharged to home with instructions to follow up with her provider within the next 3-5 days to recheck her hemoglobin and hematocrit. Activity: Up ad zulay. Diet: High iron diet. Medications: Depo-Provera 150 mg IM every 3 months. 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 She prefers the Depo-Provera at this time. This was prescribed and she was advised to go to the pharmacy today and get this injected. Ferrous sulfate 325 mg p.o. b.i.d. Colace 100 mg p.o. b.i.d. Hydroxyzine 10 mg p.o. at bedtime p.r.n. insomnia or anxiety. Omeprazole 40 mg p.o. daily. Sertraline 50 mg p.o. at bedtime.
== END 2017-01-12 14:10 | disposition home or self-care (01) ==
LOC: ED SRH 17:21 → TRANS SRH 20:01 → ACUTE2 SRH 20:01
PROVIDERS: ADMIT Internal Medicine
PROC: 30233P1 Transfusion of Nonautologous Frozen Red Cells into Peripheral Vein, Percutaneous Approach (ICD-10-PCS; principal; 2017-01-11)
DX: D50.0 Iron deficiency anemia secondary to blood loss (chronic) (principal); N93.8 Other specified abnormal uterine and vaginal bleeding; E87.6 Hypokalemia; F32.9 Major depressive disorder, single episode, unspecified; F41.9 Anxiety disorder, unspecified
CPT/HCPCS: 29230; 29249; 29264; 90001; 90047; 90074; 90100; 90155; 90616; 91004; 91162; 91163; 91282; 91295; 91504; 91505; 91544; 92668; 92670; 92755; 92760; 92761; 92762; 92763; 92764; 92765; 92766; 92767; 93070; 94001; 94060; 95059; 95061; 95140; 99789